=== PATIENT | female | born 1945 | race African-American/Black ===

== ENCOUNTER 2022-02-15 01:37 | Day surgery (SDC) | payer MEDICARE, SELFPAY ==
[2022-02-01 11:37] VITALS: BMI 24.2
[2022-02-15 11:17] VITALS: BP 128/57; PULSE 74; RESP 18; TEMP 36.6; O2SAT 100
--- NOTE | 2022-02-15 11:26 | WPDHPUPDATE1 ---
History and Physical Update Update Date/Time: 02/15/22 11:26 History and Physical has been reviewed, including an updated exam of the patient. There are NO changes in the patient's condition. Risks, benefits, and alternatives have been discussed and questions answered. Patient agrees to proceed with procedure.
[2022-02-15] MEDS: LACTATED RINGERS 1,000 ML 150 ML IV CONT (11:34)
--- NOTE | 2022-02-15 12:01 | WPDANESEPPF ---
Anes - Initial Pre Proc Eval Procedure: Operation Date: 02/15/22 12:30 Proposed Procedures p Colonoscopy - Conrado Ray MD Date/Time: 02/15/22 12:01 Surgeon: Conrado Ray MD Pre Op Diagnosis: Bloody stool Patient Data Age: 76 Gender: F Height: 1.61 m Weight: 62.4 kg Last Vital Signs Temp 36.6 C 02/15/22 11:17 Pulse 74 02/15/22 11:17 Resp 18 02/15/22 11:17 BP 128/57 L 02/15/22 11:17 Pulse Ox 100 02/15/22 11:17 O2 Del Method Room Air 02/15/22 11:17 Allergies Allergy/AdvReac Type Severity Reaction Status Date / Time Penicillins Allergy Mild Unknown Verified 02/15/22 11:16 Home Medications Medication Instructions Recorded Confirmed Type biotin 5,000 mcg disintegrating 10,000 mcg PO DAILY 01/29/22 02/15/22 History tablet calcium 650 mg-vitamin D3 12.5 1 tablet PO DAILY 01/29/22 02/15/22 History mcg-vitamin K 40 mcg chewable tablet (Viactiv) calcium carbonate 600 mg calcium 600 mg PO DAILY 01/29/22 02/15/22 History (1,500 mg) tablet (Calcium) cholecalciferol (vitamin D3) 25 25 mcg PO DAILY 01/29/22 02/15/22 History mcg/drop (1,000 unit/drop) oral drops multivitamin 1 tablet PO DAILY 01/29/22 02/15/22 History atorvastatin 20 mg tablet 20 mg PO DAILY 02/01/22 02/15/22 History Patient hx anesthesia problems: none Family hx anesthesia problems: none Results Review: All pre-operative results and documents have been reviewed as part of the pre-operative evaluation. FOR[facility] Past Medical History Medical History Hyperlipidemia Ulcer Surgical History Surgical History History of hysterectomy Anes - Eval Final PreProcedure Day of Procedure 02/15/22 12:01 Patient weight: normal Heart: regular rate and rhythm Lungs: clear to auscultation Neurological: alert and oriented Last oral intake: >/= 8 hours ASA classification: II Emergent: no Anesthetic plan: proceed Anesthesia type and monitoring: general GIVS and standard monitoring Results Review: All pre-operative results and documents have been reviewed as part of the pre-operative evaluation. Informed Consent: The patient's anesthetic plan and its attendant risks and benefits were discussed with the patient/family/POA. Questions were solicited and answers provided to the satisfaction of the patient/family/POA.
[2022-02-15 12:23] VITALS: BP 92/43; PULSE 80; RESP 25; O2SAT 100
[2022-02-15 12:33] VITALS: BP 104/59; PULSE 80; RESP 18; O2SAT 100
[2022-02-15 12:43] VITALS: BP 125/95; PULSE 81; RESP 24; O2SAT 100
== END 2022-02-15 12:47 | disposition home or self-care (01) ==
PROVIDERS: PCP Internal Medicine; Visit Provider Internal Medicine Gastroenterology
PROC: 0DJD8ZZ Inspection of Lower Intestinal Tract, Via Natural or Artificial Opening Endoscopic (ICD-10-PCS; CPT 45378; principal; 2022-02-15 12:30)
DX: K92.1 Melena (principal); K64.8 Other hemorrhoids; E78.5 Hyperlipidemia, unspecified; K59.00 Constipation, unspecified
CPT/HCPCS: 45378; J2704; J7120